=== PATIENT | male | born 1995 ===

== ENCOUNTER 2020-03-17 18:01 | Outpatient (CLI) | payer OTHER, SELFPAY ==
[2020-03-17 18:26] LABS: Basophils # 0.1 10^3/uL (0.0-0.1); Basophils % 0.8 %; Eosinophils # 0.4 10^3/uL (0.0-0.8); Eosinophils % 3.8 %; Hematocrit 46.2 % (42.0-52.0); Hemoglobin 15.1 g/dL (11.7-16.6); Lymphocytes # 1.8 10^3/uL (0.8-4.8); Lymphocytes % 15.9 %; Mean Corpuscular HGB Conc 32.7 g/dL (30.0-36.0); Mean Corpuscular Hemoglobin 28.2 pg (28.0-34.0); Mean Corpuscular Volume 86.2 fL (80-94); Mean Platelet Volume 10.3 fL (7.4-10.4); Monocytes # 0.7 10^3/uL (0.2-0.9); Monocytes % 5.8 %; Neutrophils # 8.18 10^3/uL (1.8-7.7); Neutrophils % 73.4 %; Nucleated Red Blood Cells % 0 %; Platelet Count 337 10^3/cmm (130-400); Red Blood Count 5.36 10^6/uL (4.1-5.3); Red Cell Distribution Width 12.4 % (12.1-15.1); White Blood Count 11.1 10^3/uL (4.0-10.0)
[2020-03-17 19:03] LABS: Alanine Aminotransferase 31 U/L (0-41); Albumin Level 5.1 g/dL (3.5-5.2); Alkaline Phosphatase 72 IU/L (40-130); Blood Urea Nitrogen 8 mg/dL (6-20); Calcium 10.1 mg/dL (8.5-10.5); Carbon Dioxide 29 mmol/L (22-29); Chloride 101 mmol/L (98-107); Globulin 2.5 g/dL (1.3-4.6); Glomerular Filtration Rate 116.9 mL/min (90-130); Glucose 89 mg/dL (65-115); Magnesium 2.3 mg/dL (1.7-2.3); Osmolality Calculated 283 mOsm/kg (285-295); Sodium 139 mmol/L (136-145); Thyroid Stimulating Hormone 2.41 uIU/mL (0.27-4.20); Total Bilirubin 0.6 mg/dL (0.15-1.2); Total Protein 7.6 g/dL (6.6-8.7)
[2020-03-17 19:35] LABS: Anion Gap 12.9 (5-19); Aspartate Amino Transferase 22 U/L (0-40); Potassium 3.9 mmol/L (3.5-5.1)
== END 2020-03-17 18:02 | disposition home or self-care (01) ==
LOC: LAB 18:09
PROVIDERS: Family Provider Family Medicine; Visit Provider Nurse Practitioner Family
DX: R07.9 Chest pain, unspecified (principal)
CPT/HCPCS: 36415; 80053; 83735; 84443; 85025

== ENCOUNTER 2021-07-27 07:47 | Emergency (ER) | payer OTHER, SELFPAY ==
[2021-07-27 08:06] VITALS: BP 134/88; PULSE 84; RESP 16; O2SAT 97; BMI 31.8
[2021-07-27 08:11] VITALS: TEMP 37
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
[2021-07-27 09:16] LABS: Basophils # 0.1 10^3/uL (0.0-0.1); Basophils % 0.7 %; Eosinophils # 0.1 10^3/uL (0.0-0.8); Eosinophils % 1.2 %; Hematocrit 48.2 % (42.0-52.0); Hemoglobin 15.9 g/dL (11.7-16.6); Lymphocytes # 1.3 10^3/uL (0.8-4.8); Lymphocytes % 11.7 %; Mean Corpuscular Hemoglobin 27.5 pg (28.0-34.0); Mean Corpuscular Volume 83.4 fl (80-94); Mean Platelet Volume 10.5 fL (7.4-10.4); Monocytes # 0.6 10^3/uL (0.2-0.9); Monocytes % 5.6 %; Neutrophils # 8.76 10^3/uL (1.8-7.7); Neutrophils % 80.6 %; Nucleated Red Blood Cells % 0 %; Platelet Count 326 10^3/cmm (130-400); Red Blood Count 5.78 10^6/uL (4.1-5.3); Red Cell Distribution Width 12.3 % (12.1-15.1); White Blood Count 10.9 10^3/uL (4.0-10.0)
[2021-07-27 09:26] VITALS: BP 139/90; PULSE 81; RESP 18; O2SAT 97
[2021-07-27 09:31] LABS: Add Urine Microscopic? NO; Charge for UA Resulting for Rev
[2021-07-27 09:33] LABS: Alanine Aminotransferase 18 U/L (0-41); Albumin Level 4.7 g/dL (3.5-5.2); Alkaline Phosphatase 83 IU/L (40-130); Anion Gap 16.1 (5-19); Aspartate Amino Transferase 13 U/L (0-40); Blood Urea Nitrogen 13 mg/dL (6-20); Calcium 8.9 mg/dL (8.5-10.5); Carbon Dioxide 22 mmol/L (22-29); Chloride 104 mmol/L (98-107); Globulin 2.5 g/dL (1.3-4.6); Glomerular Filtration Rate 135.3 mL/min (90-130); Glucose 98 mg/dL (65-115); Osmolality Calculated 286 mOsm/kg (285-295); Potassium 4.1 mmol/L (3.5-5.1); Sodium 138 mmol/L (136-145); Total Bilirubin 0.3 mg/dL (0.15-1.2); Total Protein 7.2 g/dL (6.6-8.7)
[2021-07-27 09:41] LABS: Bilirubin Urine Neg (Negative); Blood Urine Neg (Negative); Glucose Urine UA Norm (Normal); Ketones Urine Negative (Negative); Leukocyte Esterase Urine Negative (Negative); Nitrate Urine Negative (Negative); Protein Urine Neg (Negative); Specific Gravity, Urine 1.015 (1.005-1.030); Urine Appearance Clear (CLEAR); Urine Color Yellow (Yellow); Urobilinogen Urine Norm (Negative); pH Urine 6.5 (5-7)
[2021-07-27 10:31] VITALS: BP 136/83; PULSE 81; RESP 18; O2SAT 97
== END 2021-07-27 10:33 | disposition home or self-care (01) ==
PROVIDERS: Emergency Provider Family Medicine; PCP Family Medicine
DX: Z04.1 Encounter for examination and observation following transport accident (principal); V89.2XXA Person injured in unspecified motor-vehicle accident, traffic, initial encounter; F17.210 Nicotine dependence, cigarettes, uncomplicated
CPT/HCPCS: 36415; 70450; 72125; 80053; 81003; 85025; 99283